=== PATIENT | female | born 1940 | race Caucasian/White ===

== ENCOUNTER → 2017-08-03 | Outpatient (CLI) | payer MEDICARE, BC ==
[2016-01-27 16:52] VITALS: BP 127/53
[~2017-08-03] MED LIST: ALTACE 5MG5 MG PO; ATIVAN 2MG2 MG PO; BUSPIRONE HYDRO10 MG PO; BYSTOLIC PO; CALCIUM 600600 M2 PO; CLOPIDOGREL PO; CRESTOR20 MG PO; ESTER-C 500 MG1 EACH PO; FORADIL INHAL144 MCG INH; HCTZ 25MG25 MG PO; LEXAPRO5 MG PO; MIRTAZAPINE30 MG PO; NATURE'S BOUNTY1 TAB PO; PANTOPRAZOLE SO40 MG PO; POTASSIUM CHLO20 ME3 PO; SINGULAIR PO; WOMEN'S DAILY F1 TAB PO
== END ==
LOC: PT 13:28
DX: Z01.818 Encounter for other preprocedural examination (principal); S83.281A Other tear of lateral meniscus, current injury, right knee, initial encounter; M17.11 Unilateral primary osteoarthritis, right knee

== ENCOUNTER 2017-09-15 14:30 | Outpatient (RCR) | payer MEDICARE, BC ==
[2016-01-27 16:52] VITALS: BP 127/53
== END 2017-09-15 15:00 | disposition home or self-care (01) ==
LOC: PT 14:30
DX: Z47.89 Encounter for other orthopedic aftercare (principal)
CPT/HCPCS: G8978-GP; G8979-GP

== ENCOUNTER 2018-02-19 11:02 | Emergency (ER) | payer MEDICARE, BC ==
[~2018-02-19] VITALS: Ht 165.1 cm; Wt 72.3 kg
[2018-02-19 11:47] VITALS: BP 119/48
== END 2018-02-19 11:46 | disposition home or self-care (01) ==
LOC: ED 11:02
DX: S61.411A Laceration without foreign body of right hand, initial encounter (principal); W22.8XXA Striking against or struck by other objects, initial encounter; Y92.007 Garden or yard of unspecified non-institutional (private) residence as the place of occurrence of the external cause; Z79.02 Long term (current) use of antithrombotics/antiplatelets; I10 Essential (primary) hypertension; Z23 Encounter for immunization
CPT/HCPCS: 90714

== ENCOUNTER 2018-11-24 16:00 | Outpatient (RCR) | payer OTHER | END 2018-11-24 16:30 | LOC: PT 16:00 | DX: S13.9XXS Sprain of joints and ligaments of unspecified parts of neck, sequela (principal) ==

== ENCOUNTER → 2019-05-31 | Outpatient (CLI) | payer MEDICARE, BC | LOC: MAMMO 12:57 | DX: Z12.31 Encounter for screening mammogram for malignant neoplasm of breast (principal) ==

== ENCOUNTER 2020-04-18 21:03 | Emergency (ER) | payer MEDICARE, BC ==
[~2020-04-18] VITALS: Ht 165.1 cm; Wt 75.0 kg
[2020-04-18] MEDS ORDERED: BYSTOLIC20 MG PO (21:18)
[2020-04-18] MEDS ORDERED: ALTACE 10MG TAB10 MG PO (21:19)
[2020-04-18 22:40] VITALS: BP 156/64
[2020-04-18] MEDS ORDERED: ADULT ASPIRIN R81 MG PO (23:17)
== END 2020-04-18 22:40 | disposition home or self-care (01) ==
LOC: ED 21:03
DX: R04.0 Epistaxis (principal); I10 Essential (primary) hypertension; Z90.710 Acquired absence of both cervix and uterus; Z90.49 Acquired absence of other specified parts of digestive tract; Z87.442 Personal history of urinary calculi; Z88.2 Allergy status to sulfonamides; Z91.048 Other nonmedicinal substance allergy status

== ENCOUNTER 2021-05-27 13:13 | Emergency (ER) | payer MEDICARE, BC ==
[~2021-05-27] VITALS: Ht 165.1 cm; Wt 77.3 kg
[~2021-05-27 13:13] MED LIST changes: +ADULT ASPIRIN R81 MG PO; +ALTACE 10MG TAB10 MG PO; +BYSTOLIC20 MG PO
[2021-05-27] MEDS ORDERED: SINGULAIR 110 MG/TAB PO (13:37)
[2021-05-27 15:41] VITALS: BP 122/62
== END 2021-05-27 15:41 | disposition home or self-care (01) ==
LOC: ED 13:13
DX: S09.90XA Unspecified injury of head, initial encounter (principal); S00.03XA Contusion of scalp, initial encounter; I10 Essential (primary) hypertension; Z79.899 Other long term (current) drug therapy; W01.198A Fall on same level from slipping, tripping and stumbling with subsequent striking against other object, initial encounter

== ENCOUNTER 2022-03-24 22:26 | Emergency (ER) | payer MEDICARE, BC ==
[~2022-03-24] VITALS: Ht 167.6 cm; Wt 72.7 kg
[~2022-03-24 22:26] MED LIST changes: +SINGULAIR 110 MG/TAB PO
[2022-03-24 22:54] LABS: BASO # 0.04 K/mm3 (0.02-0.10); EOS # 0.17 K/mm3 (0.04-0.40); EOS % 2.1 % (1.0-5.0); HEMATOCRIT 38.6 % (37.0-47.0); HEMOGLOBIN 12.6 g/dL (12.5-16.0); LYMPH# 2.21 K/mm3 (1.50-4.00); MEAN CELL VOLUME 93 fl (78-100); MEAN CORPUSCULAR HEMOGLOBIN 30 pg (27-31); MEAN CORPUSCULAR HGB CONC 33 g/dL (33-37); MEAN PLATELET VOLUME 9.7 fl (7.4-10.4); MONO # 0.93 K/mm3 (0.20-0.80); NEU # 4.71 K/mm3 (1.40-6.50); PLATELET COUNT 213 K/mm3 (130-400); RED BLOOD COUNT 4.15 M/mm3 (4.10-5.30); RED CELL DISTRIBUTION WIDTH 12.1 % (11.5-14.5); WHITE BLOOD COUNT 8.1 K/mm3 (4.8-10.8)
[2022-03-24 23:06] LABS: ALBUMIN 4.3 g/dL (3.4-4.8); POTASSIUM 3.8 mmol/L (3.5-5.1); SODIUM 140 mmol/L (136-145)
[2022-03-24 23:07] LABS: CALCIUM 9.8 mg/dL (8.3-10.5)
[2022-03-24 23:08] LABS: GLUCOSE 109 mg/dL (65-105)
[2022-03-24 23:09] LABS: TOTAL PROTEIN 7.5 g/dL (6.2-8.1)
[2022-03-24 23:10] LABS: CARBON DIOXIDE 24 mmol/L (23-31)
[2022-03-24 23:14] LABS: AST-SGOT 26 U/L (5-34)
[2022-03-24 23:15] LABS: ALT/SGPT 17 U/L (0-55); MAGNESIUM 1.82 mg/dL (1.60-2.60)
[2022-03-24 23:22] LABS: TROPONIN-I < 0.030 ng/mL (<0.030)
[2022-03-24] MEDS ORDERED: MYRBETRIQ25 MG PO (23:56)
[2022-03-25 00:02] LABS: URINE APPEARANCE CLEAR; URINE BILIRUBIN NEGATIVE (NEGATIVE); URINE BLOOD NEGATIVE (NEGATIVE); URINE COLOR STRAW; URINE GLUCOSE NEGATIVE (NEGATIVE); URINE KETONE NEGATIVE (NEGATIVE); URINE LEUKOCYTE ESTERASE 1+ (NEGATIVE); URINE NITRATE NEGATIVE (NEGATIVE); URINE PROTEIN(semi-quant) NEGATIVE (NEGATIVE); URINE UROBILINOGEN NORMAL (NORMAL)
[2022-03-25 01:13] VITALS: BP 175/61
== END 2022-03-25 00:58 | disposition home or self-care (01) ==
LOC: ED 22:26
PROVIDERS: Nurse Practitioner Family
DX: R51.9 Headache, unspecified (principal); R20.2 Paresthesia of skin

== ENCOUNTER 2022-06-12 19:35 | Emergency (ER) | payer MEDICARE, BC ==
[~2022-06-12] VITALS: Ht 165.1 cm; Wt 75.5 kg
[~2022-06-12 19:35] MED LIST changes: +MYRBETRIQ25 MG PO
[2022-06-12 20:23] LABS: BASO # 0.02 K/mm3 (0.02-0.10); EOS # 0.14 K/mm3 (0.04-0.40); EOS % 2.2 % (1.0-5.0); HEMATOCRIT 38.3 % (37.0-47.0); HEMOGLOBIN 12.2 g/dL (12.5-16.0); LYMPH# 1.41 K/mm3 (1.50-4.00); MEAN CELL VOLUME 95 fl (78-100); MEAN CORPUSCULAR HEMOGLOBIN 30 pg (27-31); MEAN CORPUSCULAR HGB CONC 32 g/dL (33-37); MEAN PLATELET VOLUME 9.5 fl (7.4-10.4); MONO # 0.55 K/mm3 (0.20-0.80); NEU # 4.14 K/mm3 (1.40-6.50); PLATELET COUNT 215 K/mm3 (130-400); RED BLOOD COUNT 4.04 M/mm3 (4.10-5.30); RED CELL DISTRIBUTION WIDTH 11.9 % (11.5-14.5); WHITE BLOOD COUNT 6.3 K/mm3 (4.8-10.8)
[2022-06-12 20:37] LABS: ALBUMIN 4.1 g/dL (3.4-4.8); POTASSIUM 4.4 mmol/L (3.5-5.1)
[2022-06-12 20:38] LABS: CALCIUM 9.7 mg/dL (8.3-10.5)
[2022-06-12 20:41] LABS: TOTAL BILIRUBIN 0.6 mg/dL (0.2-1.2)
[2022-06-12 20:42] LABS: PROTHROMBIN TIME 10.4 SECONDS (9.0-12.0)
[2022-06-12 20:46] LABS: MAGNESIUM 1.77 mg/dL (1.60-2.60)
[2022-06-12 22:26] LABS: PH-URINE 5.5 (5.0 - 8.0); URINE APPEARANCE CLEAR; URINE BILIRUBIN NEGATIVE (NEGATIVE); URINE COLOR YELLOW; URINE GLUCOSE NEGATIVE (NEGATIVE); URINE KETONE NEGATIVE (NEGATIVE); URINE NITRATE NEGATIVE (NEGATIVE); URINE PROTEIN(semi-quant) TRACE (NEGATIVE); URINE UROBILINOGEN NORMAL (NORMAL)
[2022-06-12 22:27] LABS: URINE BLOOD NEGATIVE (NEGATIVE); URINE LEUKOCYTE ESTERASE NEGATIVE (NEGATIVE); URINE WBC 0-1 /hpf (0-3)
[2022-06-12 23:55] VITALS: BP 165/68
== END 2022-06-13 00:05 | disposition home or self-care (01) ==
LOC: ED 19:35
PROVIDERS: Nurse Practitioner Family
DX: R07.89 Other chest pain (principal); G50.1 Atypical facial pain; Z28.310 Unvaccinated for COVID-19

== ENCOUNTER 2023-12-11 12:27 | Emergency (ER) | payer MEDICARE, BC ==
[~2023-12-11 12:27] MED LIST changes: +NS 1,000 ML IV ONE
[2024-01-30 10:41] LABS: ALBUMIN 4.4 g/dL (3.4-4.8); ALT/SGPT 27 U/L (0-55); AST-SGOT 34 U/L (5-34); CALCIUM 9.8 mg/dL (8.3-10.5); CARBON DIOXIDE 15 mmol/L (23-31); GLUCOSE 114 mg/dL (65-105); MAGNESIUM 1.49 mg/dL (1.60-2.60); SODIUM 139 mmol/L (136-145); TOTAL BILIRUBIN 0.5 mg/dL (0.2-1.2); TOTAL PROTEIN 7.4 g/dL (6.2-8.1)
[2024-01-30 10:42] LABS: TROPONIN-I < 0.030 ng/mL (0.00-0.033)
[2024-01-30 11:17] LABS: BASO # 0.05 K/mm3 (0.02-0.10); EOS # 0.14 K/mm3 (0.04-0.40); EOS % 2.2 % (1.0-5.0); HEMATOCRIT 36.7 % (37.0-47.0); HEMOGLOBIN 11.7 g/dL (12.5-16.0); LYMPH# 1.53 K/mm3 (1.50-4.00); MEAN CELL VOLUME 90 fl (78-100); MEAN CORPUSCULAR HEMOGLOBIN 29 pg (27-31); MEAN CORPUSCULAR HGB CONC 32 g/dL (33-37); MEAN PLATELET VOLUME 9.7 fl (7.4-10.4); NEU # 3.93 K/mm3 (1.40-6.50); PLATELET COUNT 229 K/mm3 (130-400); RED BLOOD COUNT 4.06 M/mm3 (4.10-5.30); RED CELL DISTRIBUTION WIDTH 12.5 % (11.5-14.5); WHITE BLOOD COUNT 6.3 K/mm3 (4.8-10.8)
[2024-01-30 11:18] LABS: PH-URINE 5.5 (5.0 - 8.0); URINE APPEARANCE CLEAR (CLEAR); URINE BILIRUBIN NEGATIVE (NEGATIVE); URINE BLOOD NEGATIVE (NEGATIVE); URINE COLOR YELLOW (YELLOW); URINE GLUCOSE NEGATIVE (NEGATIVE); URINE KETONE NEGATIVE (NEGATIVE); URINE LEUKOCYTE ESTERASE 1+ (NEGATIVE); URINE NITRATE NEGATIVE (NEGATIVE); URINE PROTEIN(semi-quant) 2+ (NEGATIVE)
[2024-01-30 11:19] LABS: D-DIMER 6.03 mg/L FEU (0.15-0.50); URINE MUCUS PRESENT (NOT PRESENT)
== END 2023-12-11 16:00 | disposition home or self-care (01) ==
LOC: ED 12:27
PROVIDERS: Nurse Practitioner
DX: R55 Syncope and collapse (principal)
CPT/HCPCS: J7030

== ENCOUNTER 2024-02-21 20:10 | Emergency (ER) | payer MEDICARE, BC ==
[~2024-02-21] VITALS: Ht 172.7 cm; Wt 73.6 kg
[~2024-02-21 20:10] MED LIST changes: -NS 1,000 ML IV ONE
[2024-02-21] MEDS ORDERED: NORVASC 10MG10 MG PO (20:37)
[2024-02-21] MEDS ORDERED: DOXAZOSIN MESYLA4 M1 PO (20:37)
[2024-02-21] MEDS ORDERED: LASIX 80MG TABL80 MG PO (20:38)
[2024-02-21] MEDS ORDERED: ALENDRONATE SOD70 MG PO (20:39)
[2024-02-21] MEDS ORDERED: ST. JOSEPH ASPI81 MG PO (20:40)
[2024-02-21] MEDS ORDERED: CARVEDILOL25 MG PO (20:41)
[2024-02-21] MEDS ORDERED: APRESOLINE 25MG25 MG PO (20:42)
[2024-02-21] MEDS ORDERED: MECLIZINE PO (20:45)
[2024-02-21] MEDS ORDERED: ESCITALOPRAM10 MG PO (20:45)
[2024-02-21] MEDS ORDERED: CLOPIDOGREL75 M2 PO (20:49)
[2024-02-21] MEDS ORDERED: ONDANSETRON HYDR4 MG PO (20:50)
[2024-02-21] MEDS ORDERED: METOLAZONE5 MG PO (20:52)
[2024-02-21 21:10] LABS: BASO # 0.03 K/mm3 (0.02-0.10); EOS # 0.08 K/mm3 (0.04-0.40); EOS % 1.2 % (1.0-5.0); HEMATOCRIT 28.2 % (37.0-47.0); HEMOGLOBIN 9.3 g/dL (12.5-16.0); LYMPH# 0.86 K/mm3 (1.50-4.00); MEAN CELL VOLUME 88 fl (78-100); MEAN CORPUSCULAR HEMOGLOBIN 29 pg (27-31); MEAN CORPUSCULAR HGB CONC 33 g/dL (33-37); MEAN PLATELET VOLUME 9.4 fl (7.4-10.4); MONO # 0.96 K/mm3 (0.20-0.80); NEU # 4.49 K/mm3 (1.40-6.50); PLATELET COUNT 274 K/mm3 (130-400); RED BLOOD COUNT 3.21 M/mm3 (4.10-5.30); RED CELL DISTRIBUTION WIDTH 13.6 % (11.5-14.5); WHITE BLOOD COUNT 6.4 K/mm3 (4.8-10.8)
[2024-02-21 21:19] LABS: CALCIUM 9.5 mg/dL (8.3-10.5)
[2024-02-21 21:21] LABS: TOTAL PROTEIN 6.4 g/dL (6.2-8.1)
[2024-02-21 21:22] LABS: TOTAL BILIRUBIN 0.8 mg/dL (0.2-1.2)
[2024-02-21 21:33] LABS: D-DIMER 0.88 mg/L FEU (0.15-0.50)
[2024-02-21 21:34] LABS: TROPONIN-I 0.042 ng/mL (0.00-0.033)
[2024-02-21] MEDS ORDERED: Furosemide 40 MG/4 ML VIAL IV ONE (22:00)
[2024-02-21] MEDS ORDERED: Escitalopram 10 MG TAB PO ONE (22:30)
[2024-02-21] MEDS ORDERED: hydrALAZINE 25 MG TAB PO ONE (22:30)
[2024-02-21] MEDS ORDERED: ALPRAZolam 0.25 MG TAB PO ONE (22:30)
[2024-02-21 23:45] VITALS: BP 147/58
== END 2024-02-21 23:45 | disposition short-term general hospital (02) ==
LOC: ED 20:10
PROVIDERS: Physician Assistant
DX: I12.9 Hypertensive chronic kidney disease with stage 1 through stage 4 chronic kidney disease, or unspecified chronic kidney disease (principal); N18.9 Chronic kidney disease, unspecified; N17.9 Acute kidney failure, unspecified; R79.89 Other specified abnormal findings of blood chemistry; R06.89 Other abnormalities of breathing
CPT/HCPCS: J1940

== ENCOUNTER 2024-03-08 08:24 | Emergency (ER) | payer MEDICARE, BC ==
[~2024-03-08] VITALS: Ht 167.6 cm; Wt 61.7 kg
[~2024-03-08 08:24] MED LIST changes: +ALENDRONATE SOD70 MG PO; +APRESOLINE 25MG25 MG PO; +CARVEDILOL25 MG PO; +CLOPIDOGREL75 M2 PO; +DOXAZOSIN MESYLA4 M1 PO; +ESCITALOPRAM10 MG PO; +LASIX 80MG TABL80 MG PO; +MECLIZINE PO; +METOLAZONE5 MG PO; +NORVASC 10MG10 MG PO; +ONDANSETRON HYDR4 MG PO; +ST. JOSEPH ASPI81 MG PO
[2024-03-08] MEDS ORDERED: LORazepam 2 MG/ML VIAL IV ONE (09:00)
[2024-03-08 09:16] LABS: BASO # 0.05 K/mm3 (0.02-0.10); EOS # 0.17 K/mm3 (0.04-0.40); EOS % 1.9 % (1.0-5.0); HEMATOCRIT 36.8 % (37.0-47.0); HEMOGLOBIN 11.5 g/dL (12.5-16.0); LYMPH# 1.53 K/mm3 (1.50-4.00); MEAN CELL VOLUME 87 fl (78-100); MEAN CORPUSCULAR HEMOGLOBIN 27 pg (27-31); MEAN CORPUSCULAR HGB CONC 31 g/dL (33-37); MEAN PLATELET VOLUME 10.1 fl (7.4-10.4); MONO # 1.04 K/mm3 (0.20-0.80); NEU # 6.12 K/mm3 (1.40-6.50); PLATELET COUNT 317 K/mm3 (130-400); RED BLOOD COUNT 4.21 M/mm3 (4.10-5.30); RED CELL DISTRIBUTION WIDTH 13.8 % (11.5-14.5); WHITE BLOOD COUNT 8.9 K/mm3 (4.8-10.8)
[2024-03-08 09:21] LABS: ALBUMIN 4.3 g/dL (3.4-4.8)
[2024-03-08 09:22] LABS: CALCIUM 9.9 mg/dL (8.3-10.5)
[2024-03-08 09:23] LABS: TOTAL PROTEIN 7.3 g/dL (6.2-8.1)
[2024-03-08 09:25] LABS: TOTAL BILIRUBIN 0.7 mg/dL (0.2-1.2)
[2024-03-08 09:51] LABS: TROPONIN-I 0.051 ng/mL (0.00-0.033)
[2024-03-08 11:25] VITALS: BP 163/70
[2024-03-08 12:56] LABS: D-DIMER 1.36 mg/L FEU (0.15-0.50)
== END 2024-03-08 11:30 | disposition home or self-care (01) ==
LOC: ED 08:24
PROVIDERS: Physician Assistant
DX: F41.9 Anxiety disorder, unspecified (principal); I48.0 Paroxysmal atrial fibrillation; Z87.74 Personal history of (corrected) congenital malformations of heart and circulatory system; Z79.01 Long term (current) use of anticoagulants
CPT/HCPCS: J2060

== ENCOUNTER 2024-03-16 14:22 | Emergency (ER) | payer MEDICARE, BC ==
[~2024-03-16] VITALS: Ht 167.6 cm; Wt 63.1 kg
[2024-03-16 15:18] LABS: BASO # 0.04 K/mm3 (0.02-0.10); EOS # 0.37 K/mm3 (0.04-0.40); EOS % 5.2 % (1.0-5.0); HEMATOCRIT 31.4 % (37.0-47.0); HEMOGLOBIN 9.9 g/dL (12.5-16.0); LYMPH# 1.01 K/mm3 (1.50-4.00); MEAN CELL VOLUME 88 fl (78-100); MEAN CORPUSCULAR HEMOGLOBIN 28 pg (27-31); MEAN CORPUSCULAR HGB CONC 32 g/dL (33-37); MONO # 0.77 K/mm3 (0.20-0.80); NEU # 4.85 K/mm3 (1.40-6.50); PLATELET COUNT 116 K/mm3 (130-400); RED BLOOD COUNT 3.59 M/mm3 (4.10-5.30); RED CELL DISTRIBUTION WIDTH 14.4 % (11.5-14.5); WHITE BLOOD COUNT 7.1 K/mm3 (4.8-10.8)
[2024-03-16 20:44] VITALS: BP 139/55
== END 2024-03-16 20:44 | disposition short-term general hospital (02) ==
LOC: ED 14:22
PROVIDERS: Family Medicine
DX: R06.00 Dyspnea, unspecified (principal); I48.91 Unspecified atrial fibrillation; Z79.01 Long term (current) use of anticoagulants

== ENCOUNTER → 2024-03-28 | Outpatient (REF) | payer MEDICARE, BC | LOC: LAB 11:57 | DX: I50.33 Acute on chronic diastolic (congestive) heart failure (principal) ==